=== PATIENT | female | born 1940 | race Caucasian/White ===

== ENCOUNTER 2018-01-23 18:58 | Inpatient (IN) | payer MEDICARE, OTHER ==
[~2018-01-23] VITALS: Ht 152.4 cm; Wt 84.1 kg
[2018-01-23 19:30] VITALS: BP 126/60
--- NOTE | 2018-01-23 19:30 | NUR ---
MS/RN OPENING NOTES PT RECEIVED, DIRECT ADMIT FROM [place] VIA [facility]. PT IS A/OX2-3, FORGETFUL. ON ROOM AIR, BREATHING EVEN AND UNLABORED. NO S/S OF SOB OR PAIN. NO ACUTE DISTRESS. IV TO LAC PATENT AND INTACT. ORIENTED PT TO ROOM AND CALL LIGHT. SIDE RAILS UPX3 AND BED ALARM ON FOR SAFETY. BED IN LOW/LOCKED POSITION WITH CALL LIGHT IN REACH. WILL CONTINUE TO MONITOR
[2018-01-23 20:00] VITALS: BP 126/60
[2018-01-23] MEDS ORDERED: ACETAMINOPHEN 325 MG TABLET PO PRN (21:00)
[2018-01-23] MEDS ORDERED: ZOLPIDEM TARTRATE 5 MG TABLET PO PRN (21:00)
[2018-01-23] MEDS ORDERED: ONDANSETRON HCL/PF 4 MG/2 ML VIAL IVP PRN (21:00)
[2018-01-23] MEDS ORDERED: Z GUARD REMEDY 2 OZ OINT TP PRN (21:00)
[2018-01-23] MEDS ORDERED: HYDROCODONE/APAP 5/325MG 1 EACH TABLET PO PRN (21:00)
[2018-01-23] MEDS ORDERED: MAGNESIUM HYDROXIDE 30 ML UDC PO PRN (21:00)
[2018-01-23] MEDS ORDERED: MAG HYDROX/AL HYDROX/SIMETH 30 ML UDC PO PRN (21:00)
--- NOTE | 2018-01-23 21:10 | NUR ---
MS/RN NOTES CALLED PT'S GRANDDAUGHTER SLIME GUSTAFSON [phone]. NO ANSWER LEFT VOICEMAIL [phone] - CALLED AGAIN. Addendum: 01/23/18 at 2328 by JOE BHATT RN SLIME INFORMED ME THAT THE NUMBER ABOVE IS INCORRECT. HER NUMBER IS [phone]. PHONE NUMBER CHANGED IN THE CHART
--- NOTE | 2018-01-23 22:30 | NUR ---
MS/RN NOTES SPOKE TO PT'S GRANDDAUGHTER SLIME GUSTAFSON [phone]. PROVIDED LIST OF HOME MEDICATIONS AND HISTORY OF PT. WILL COME IN THE MORNING TO PROVIDED PHYSICAL COPY OF MEDICATIONS AND SPEAK TO MD REGARDING OPTIONS FOR PLACEMENT.
[2018-01-23] MEDS ORDERED: GABA600T2 PO (22:31)
[2018-01-23] MEDS ORDERED: GLIP10TA11 PO (22:31)
[2018-01-23] MEDS ORDERED: TRAM50TA2 PO (22:31)
[2018-01-23] MEDS ORDERED: INSU100V28 SQ (22:31)
[2018-01-23] MEDS ORDERED: LIDO700A30 TP (22:31)
[2018-01-23] MEDS ORDERED: OMEP40CA37 PO (22:31)
[2018-01-23] MEDS ORDERED: ATOR40TA PO (22:31)
[2018-01-23] MEDS ORDERED: METF500T6 PO (22:31)
[2018-01-23] MEDS ORDERED: VENL75TA4 PO (22:31)
[2018-01-23] MEDS ORDERED: ASPI-992 PO (22:31)
[2018-01-23] MEDS ORDERED: LEVO50TA8 PO (22:31)
--- NOTE | 2018-01-23 22:45 | NUR ---
MS/RN NOTES DR. JUARES ON UNIT. MADE AWARE OF PT'S UPDATED MEDRECON AND NEED FOR SLIDING SCALE. PT'S [id number]. WILL INPUT ORDERS
[2018-01-24] MEDS ORDERED: DEXTROSE 50%-WATER 50 ML DISP.SYRIN IV PRN
[2018-01-24] MEDS ORDERED: TRAMADOL HCL 50 MG TABLET PO PRN
[2018-01-24] MEDS: *INSULIN REGULAR(HUMULIN R)HUM 100 UNIT/ML VIAL SQ PRN ×2 (00:06→21:35)
--- NOTE | 2018-01-24 00:30 | NUR ---
MS/RN NOTES [facility] CLARIFIED LEVOTHYROXINE ORDER. SHOULD BE QDAILY, NOT BID. SHE WILL CHANGE IN EMAR.
[2018-01-24] MEDS: BLOOD SUGAR DIAGNOSTIC 1 EACH STRIP VI SCH ×4 (06:38→21:28)
[2018-01-24] MEDS: LEVOTHYROXINE SODIUM 50 MCG TABLET PO SCH (06:38)
[2018-01-24] MEDS: PANTOPRAZOLE 40 MG TABLET.DR PO SCH (06:38)
[2018-01-24] MEDS: INSULIN REGULAR, HUMAN 100 UNIT/ML 3 ML VIAL SQ PRN ×2 (06:45→12:08)
[2018-01-24 07:53] LABS: BASOPHILS % (AUTO) 0.4 % (0.0-2.0); EOSINOPHILS % (AUTO) 2.7 % (0.0-6.0); HEMATOCRIT 44 % (33-45); LYMPHOCYTES # (AUTO) 2.7 /CMM (0.8-4.8); LYMPHOCYTES % (AUTO) 31.7 % (20.0-44.0); MEAN CORPUSCULAR HEMOGLOBIN 30 PG (26.0-33.0); MEAN CORPUSCULAR HGB CONC 34 g/dl (31.0-36.0); MEAN CORPUSCULAR VOLUME 88 fL (82-100); MONOCYTES # (AUTO) 0.6 /CMM (0.1-1.30); MONOCYTES % (AUTO) 6.7 % (2.0-12.0); NEUTROPHILS % (AUTO) 58.5 % (43.0-81.0); PLATELET COUNT (AUTO) 229 /CMM (150-450); RDW COEFFICIENT OF VARIATION 14.4 (11.5-15.0); RED BLOOD CELL COUNT(AUTO) 5.02 MIL/uL (4.0-5.2); WHITE BLOOD COUNT (AUTO) 8.5 K/uL (4.3-11.0)
--- NOTE | 2018-01-24 07:53 | NUR ---
MS/RN CLOSING NOTES PT AWAKE, RESTING COMFORTABLY IN BED. A/OX2, FORGETFUL. ON/OFF ROOM AIR / 2L O2, BREATHING EVEN AND UNLABORED. NO S/S OF DISTRESS OR SOB NOTED. DENIES PAIN. IV TO LAC PATENT AND INTACT. NO SIGNIFICANT CHANGES OVERNIGHT. ALL NEEDS MET. ASPIRATION PRECAUTIONS IMPLEMENTED. SIDE RAILS UPX3, BED IN LOW/LOCKED POSITION WITH CALL LIGHT IN REACH. BED ALARM ON FOR SAFETY. ENDORSED TO DAY SHIFT RN SOLANGE.
[2018-01-24 08:00] VITALS: BP 105/55
--- NOTE | 2018-01-24 08:00 | NUR ---
M/S RN - Assessment Patient awake, A/ O x 3, denies pain, not in any form of distress. Skin is intact. Patient ambulatory with assist and uses walker. Saline lock on the LAC is patent, intact, with no signs of infiltration. Labs reviewed noted with low magnesium level 1.4, Bruce Natarajan N.P. made aware. Fall and aspiration precautions maintained. All needs attended and met. Will continue with current medical management.
[2018-01-24 08:03] LABS: CALCIUM, SERUM 9.3 mg/dL (8.5-10.1); CARBON DIOXIDE 29 mmol/L (21-32); CHLORIDE 104 mmol/L (98-107); CREATININE 0.7 mg/dL (0.6-1.3); GLUCOSE 172 mg/dL (74-106); MAGNESIUM 1.4 mg/dL (1.8-2.4); PHOSPHORUS 3.5 mg/dL (2.5-4.9); POTASSIUM 3.8 mmol/L (3.5-5.1); SODIUM SERUM 139 mmol/L (136-145); UREA NITROGEN, BLOOD 13 mg/dL (7-18)
[2018-01-24] MEDS: DOCUSATE SODIUM 100 MG CAPSULE PO SCH ×2 (08:28→16:17)
[2018-01-24] MEDS: GABAPENTIN 300 MG CAPSULE PO SCH ×4 (08:28→21:28)
[2018-01-24] MEDS: METFORMIN 500 MG TABLET PO SCH (08:29)
[2018-01-24] MEDS: LIDOCAINE 5% (PATCH) 1 EA PATCH TP SCH (08:29)
[2018-01-24] MEDS: ASPIRIN 325 MG TABLET PO SCH (08:29)
[2018-01-24] MEDS: VENLAFAXINE 25 MG TABLET PO SCH ×2 (08:41→16:17)
[2018-01-24] MEDS: Magnesium 1GM/D5W 100ML PREMIX 100 ML IV SCH ×4 (09:35→12:31)
--- NOTE | 2018-01-24 12:20 | NUR ---
M/S RN - Critical result Patient alert and oriented, denies numbness in extremities, headache, no c/o n/v. POC 410 mg/dL, 15 units of regular insulin given per sliding scale coverage. Granddaughter Shefali at bedside updated on plan of care. Bruce Natarajan, [employer] notified with no further orders. Will monitor closely.
[2018-01-24] MEDS ORDERED: LIDO30AD10 TP (12:44)
[2018-01-24 16:00] VITALS: BP 123/62
--- NOTE | 2018-01-24 17:55 | NUR ---
M/S RN - Closing Notes No further episode of elevated POC blood glucose, remain afebrile, appetite good, denies pain, not in any form of distress. Magnesium repleted. Awaiting speech eval and dietary consult. Will continue with plan of care.
--- NOTE | 2018-01-24 19:35 | NUR ---
RN MS OPENING NOTES RECEIVED PATIENT IN BED AWAKE ALERT AND ORIENTED X 3, ABLE TO MAKE NEEDS KNOWN, VERBALLY RESPONSIVE, RESPIRATIONS EQUAL AND UNLABORED WITH EQUAL RISE AND FALL OF CHEST.DENIES ANY PAIN OR DISCOMFORT AT THIS TIME. IV SITE TO LEFT AC #22 INTACT AND PATENT , NO REDNESS, NO INFILTRATION PRESENT. ORIENTED TO STAFF AND CALL LIGHT, SAFETY PRECAUTIONS IN PLACE, LOW BED, BED LOCKED BED ALARM IN PLACE, AND CALL LIGHT KEPT WITHIN REACH. FLUIDS AND SNACK OFFERED REQUESTED PER PATIENT. TOLERATED WELL. PERINEAL CARE PROVIDED KEPT CLEAN AND DRY AT THIS TIME, ALL NEEDS ATTENDED REMAINS COMFORTABLE AT THIS TIME, WILL CONTINUE TO MONITOR FOR ANY CHANGES.
[2018-01-24 20:00] VITALS: BP 118/56
[2018-01-24] MEDS: ATORVASTATIN 40 MG TABLET PO SCH (21:28)
[2018-01-25] MEDS: LEVOTHYROXINE SODIUM 50 MCG TABLET PO SCH (05:57)
[2018-01-25] MEDS: BLOOD SUGAR DIAGNOSTIC 1 EACH STRIP VI SCH ×4 (06:31→21:16)
[2018-01-25] MEDS: INSULIN REGULAR, HUMAN 100 UNIT/ML 3 ML VIAL SQ PRN ×3 (06:33→18:04)
[2018-01-25 07:00] LABS: CALCIUM, SERUM 9.1 mg/dL (8.5-10.1); CARBON DIOXIDE 29 mmol/L (21-32); CHLORIDE 104 mmol/L (98-107); CREATININE 0.6 mg/dL (0.6-1.3); GLUCOSE 158 mg/dL (74-106); MAGNESIUM 1.9 mg/dL (1.8-2.4); SODIUM SERUM 140 mmol/L (136-145); UREA NITROGEN, BLOOD 13 mg/dL (7-18)
--- NOTE | 2018-01-25 07:15 | NUR ---
MS/RN OPENING NOTE PATIENT ALERT AND ORIENTED X3. DENIES SOB. RESPIRATION REGULAR AND UNLABORED. DENIES PAIN. PATIENT IN NO APPARENT DISTRESS. PATIENT HAS LAC G 22 PATENT AND SALINE LOCKED. BED LOW AND LOCKED. SIDE RAILS UP X3. CALL LIGHT WITHIN REACH. WILL CONTINUE TO MONITOR.
--- NOTE | 2018-01-25 07:20 | NUR ---
RN MS CLOSING NOTES PATIENT IN BED AWAKE ALERT AND ORIENTED X 3, ABLE TO MAKE NEEDS KNOWN, VERBALLY RESPONSIVE, RESPIRATIONS EQUAL AND UNLABORED WITH EQUAL RISE AND FALL OF CHEST.DENIES ANY PAIN OR DISCOMFORT AT THIS TIME. IV SITE TO LEFT AC #22 INTACT AND PATENT , NO REDNESS, NO INFILTRATION PRESENT. SAFETY PRECAUTIONS IN PLACE, LOW BED, BED LOCKED BED ALARM IN PLACE, AND CALL LIGHT KEPT WITHIN REACH. PERINEAL CARE PROVIDED KEPT CLEAN AND DRY AT THIS TIME, ALL NEEDS ATTENDED REMAINS COMFORTABLE AT THIS TIME, WILL CONTINUE TO MONITOR AND ENDORSE TO NEXT SHIFT, NO CHANGES OF CONDITION THROUGHOUT SHIFT.
[2018-01-25] MEDS ORDERED: PANTOPRAZOLE 40 MG TABLET.DR PO SCH (07:30)
[2018-01-25 08:00] VITALS: BP 116/65
[2018-01-25] MEDS: VENLAFAXINE 25 MG TABLET PO SCH ×2 (08:24→16:27)
[2018-01-25] MEDS: LIDOCAINE 5% (PATCH) 1 EA PATCH TP SCH (08:24)
[2018-01-25] MEDS: PANTOPRAZOLE 40 MG TABLET.DR PO SCH (08:24)
[2018-01-25] MEDS: DOCUSATE SODIUM 100 MG CAPSULE PO SCH ×2 (08:24→16:30)
[2018-01-25] MEDS: GABAPENTIN 300 MG CAPSULE PO SCH ×4 (08:25→21:04)
[2018-01-25] MEDS: METFORMIN 500 MG TABLET PO SCH (08:25)
[2018-01-25] MEDS: ASPIRIN 325 MG TABLET PO SCH (08:25)
[2018-01-25 16:00] VITALS: BP 120/62
[2018-01-25] MEDS: MUPIROCIN OINT 2% 22 GM TUBE SCH ×2 (16:27→21:05)
--- NOTE | 2018-01-25 18:32 | NUR ---
MS/RN CLOSING NOTE PATIENT ALERT AND ORIENTED X3. DENIES SOB. RESPIRATION REGULAR AND UNLABORED. PATIENT RECEIVING OXYGEN 2L/MIN VIA NC AND OXYGEN SATURATION AT 96%. DENIES SOB. LAC G 22 PATENT AND SALINE LOCKED. GOOD AND GENTLE SKIN CARE RENDERED. KEPT CLEAN AND COMFORTABLE. BED LOW AND LOCKED. SIDE RAILS UP X3. CALL LIGHT WITHIN REACH. WILL ENDORSE TO COMBATANT SWIMMER.
--- NOTE | 2018-01-25 19:30 | NUR ---
RN MS NOTES RECEIVED PATIENT IN BED AWAKE. ALERT AND ORIENTED X3. VERBALLY RESPONSIVE. BREATHING EVEN AND UNLABORED. NO SOB NOTED. SKIN DRY AND WARM TO TOUCH. IV ON LEFT AC#22 INTACT AND PATENT. CURRENTLY WITH NO COMPLAINTS OF PAIN OR DISCOMFORT. REMAINS ON CONTCT ISOLATION. ALL OTHER NEEDS ATTENDED TO. CALL LIGHT WITHIN REACH. BED ON LOWEST LOCKED POSITION. WILL CONTINUE TO MONITOR.
[2018-01-25 20:00] VITALS: BP 118/57
[2018-01-25] MEDS: ATORVASTATIN 40 MG TABLET PO SCH (21:04)
[2018-01-25] MEDS: *INSULIN REGULAR(HUMULIN R)HUM 100 UNIT/ML VIAL SQ PRN (21:15)
--- NOTE | 2018-01-25 21:30 | NUR ---
RN MS NOTES PATIENT WITH COMPLAINTS OF DIARRHEA SINCE DAY SHIFT. LOOKED OVER PATIENT'S MEDICATION LIST, NOTED TO HAVE COLACE 100MG BUT IT WAS HELD TODAY. INFORMED PATIENT THAT HER COLACE WAS HELD, BUT PER PATIENT IT'S THE METFORMIN THAT IS CAUSING HER TO HAVE DIARRHEA. PER PATIENT SHE'S HAD THIS ISSUE BEFORE WHEN SHE TAKES THE FULL DOSE FOR METFORMIN. PATIENT RECEIVED METFORMIN DURING DAY SHIFT WHICH SHE BELIEVES CAUSED HER TO HAVE DIARRHEA. DR. RE CONTRERAS, HERE IN UNIT, INFORMED OF PATIENT'S X2 DIARRHEA DURING SINCE THE START OF THE SHIFT. ALSO INFORMED DR. CONTRERAS THAT PATIENT BELIEVES IT'S FROM THE METFORMIN. PER DR. CONTRERAS, D/C METFORMIN AND START LANTUS 14 UNITS SUBQ QHS. - NOTED AND CARRIED OUT. WILL CONTINUE TO MONITOR.
[2018-01-25] MEDS ORDERED: INSULIN GLARGINE, 100 UNIT/ML CARTRIDGE SQ SCH (22:00)
[2018-01-25] MEDS ORDERED: INSULIN GLARGINE, 100 UNIT/ML CARTRIDGE SQ ONE (23:22)
[2018-01-26] MEDS: LEVOTHYROXINE SODIUM 50 MCG TABLET PO SCH (06:27)
[2018-01-26] MEDS: BLOOD SUGAR DIAGNOSTIC 1 EACH STRIP VI SCH ×2 (06:33→12:00)
[2018-01-26] MEDS: INSULIN REGULAR, HUMAN 100 UNIT/ML 3 ML VIAL SQ PRN ×2 (06:33→12:00)
--- NOTE | 2018-01-26 06:45 | NUR ---
RN MS CLOSING NOTES PATIENT IN BED AWAKE. ALERT AND ORIENTED X3. VERBALLY RESPONSIVE. BREATHING EVEN AND UNLABORED. NO SOB NOTED. SKIN DRY AND WARM TO TOUCH. IV ON LEFT AC#22 INTACT AND PATENT. CURRENTLY WITH NO COMPLAINTS OF PAIN OR DISCOMFORT. REMAINS ON CONTACT ISOLATION. KEPT CLEAN, DRY, AND COMFORTABLE. ALL OTHER NEEDS ATTENDED TO. CALL LIGHT WITHIN REACH. BED ON LOWEST LOCKED POSITION. WILL ENDORSE TO ONCOMING NURSE FOR CONTINUITY OF CARE.
--- NOTE | 2018-01-26 07:25 | NUR ---
MS/RN OPENING NOTE PATIENT IS RECEIVED IN BED AND AWAKE. ALERT AND ORIENTED X3. DENIES SOB. RESPIRATION REGULAR AND UNLABORED. PATIENT IN ROOM AIR. DENIES PAIN. LAC G 22 PATENT AND SALINE LOCKED. BED LOW AND LOCKED. SIDE RAILS UP X3. CALL LIGHT WITHIN REACH. WILL CONTINUE TO MONITOR.
[2018-01-26 08:00] VITALS: BP 112/65
[2018-01-26] MEDS: GABAPENTIN 300 MG CAPSULE PO SCH ×2 (08:08→12:01)
[2018-01-26] MEDS: PANTOPRAZOLE 40 MG TABLET.DR PO SCH (08:08)
[2018-01-26] MEDS: ASPIRIN 325 MG TABLET PO SCH (08:08)
[2018-01-26] MEDS: VENLAFAXINE 25 MG TABLET PO SCH (08:08)
[2018-01-26] MEDS: LIDOCAINE 5% (PATCH) 1 EA PATCH TP SCH (08:08)
[2018-01-26] MEDS: MUPIROCIN OINT 2% 22 GM TUBE SCH (08:10)
[2018-01-26] MEDS: DOCUSATE SODIUM 100 MG CAPSULE PO SCH (08:10)
--- NOTE | 2018-01-26 14:32 | NUR ---
MS/RN CLOSING NOTE PATIENT ALERT AND ORIENTED X3. DENIES SOB. RESPIRATION REGULAR AND UNLABORED. DENIES PAIN. PATIENT IN NO APPARENT DISTRESS. DISCHARGE INSTRUCTIONS GIVEN AND THE PATIENT VERBALIZED UNDERSTANDING. REPORT GIVE TO RECEIVING NURSE GISELLE. PATIENT IS BEING PICKED UP VIA AMBULANCE. PATIENT LEAVING THE HOSPITAL IN STABLE CONDITION.
== END 2018-01-26 15:27 | DRG 639 ==
LOC: TELE 18:58 → MED 21:31
PROVIDERS: ADMIT Internal Medicine; ATTEND Internal Medicine
DX: E11.65 Type 2 diabetes mellitus with hyperglycemia (principal); M19.90 Unspecified osteoarthritis, unspecified site; E03.9 Hypothyroidism, unspecified; E66.9 Obesity, unspecified; F41.9 Anxiety disorder, unspecified; I10 Essential (primary) hypertension; Z86.73 Personal history of transient ischemic attack (TIA), and cerebral infarction without residual deficits; F32.9 Major depressive disorder, single episode, unspecified; Z68.36 Body mass index [BMI] 36.0-36.9, adult; E78.5 Hyperlipidemia, unspecified; E83.42 Hypomagnesemia; Z76.4 Other boarder to healthcare facility; Z79.82 Long term (current) use of aspirin; Z79.899 Other long term (current) drug therapy
CPT/HCPCS: 36415; 80048-TC; 82962-TC; 83735-TC; 84100-TC; 85025-TC; 87081-TC; 92521; J1815; J3475; Z7610